=== PATIENT | female | born 1945 | race Caucasian/White ===

== ENCOUNTER 2025-02-08 13:48 | Emergency (ER) | payer MEDICARE, BC ==
[2025-02-08] MEDS ORDERED: Sodium Chloride 0.9% 10 ML Syringe FLUSH PRN (14:18)
[2025-02-08 14:40] LABS: BASOPHILS PERCENT AUTO 0.8 % (0.2-1.5); EOSINOPHILS ABSOLUTE AUTO 0.1 x10-3/uL (0.0-0.8); EOSINOPHILS PERCENT AUTO 2.5 % (0.6-8.1); HEMATOCRIT 42.7 % (34.2-48.2); HEMOGLOBIN 14.8 g/dL (11.4-15.5); LYMPHOCYTES ABSOLUTE AUTO 0.5 x10-3/uL (1.0-4.4); LYMPHOCYTES PERCENT AUTO 11.8 % (18.4-52.1); MEAN CORPUSCULAR HEMOGLOBIN 31.5 pg (23.9-33.9); MEAN CORPUSCULAR HGB CONC 34.7 g/dL (31.9-34.8); MEAN CORPUSCULAR VOLUME 90.7 fL (76.7-100.5); MEAN PLATELET VOLUME 7.7 fL (7.1-12.4); MONOCYTES ABSOLUTE AUTO 0.6 x10-3/uL (0.3-1.0); MONOCYTES PERCENT AUTO 14.9 % (4.4-15.7); PLATELET COUNT,PLT 186 x10(3)uL (151-488); RED BLOOD CELL COUNT 4.71 x10(6)uL (3.60-5.20); RED CELL DISTRIBUTION WIDTH 16.8 % (12.3-16.5); WHITE BLOOD CELL COUNT,WBC 4.3 x10-3/uL (3.0-10.3)
[2025-02-08 14:55] LABS: INR 3.87 (1.00-1.24)
[2025-02-08 14:57] LABS: A/G RATIO 1.2; ALANINE AMINOTRANSFERASE,ALT 20 U/L (12-36); ALBUMIN 3.9 g/dL (3.2-4.6); ALKALINE PHOSPHATASE 86 IU/L (56-112); ASPARTATE AMNIOTRANSFERASE,AST 29 IU/L (5-25); BILIRUBIN TOTAL 3.1 mg/dL (0.1-1.3); BLOOD UREA NITROGEN,BUN 18 mg/dL (7-18); CALCIUM 8.7 mg/dL (8.6-10.2); CARBON DIOXIDE,CO2 36 mmol/L (21-32); CREATININE 1.2 mg/dL (0.55-1.02); EST CRCL DRUG DOSING (CG) 27.74 mL/min; ESTIMATED GFR 45 mL/min (>60); GLUCOSE RANDOM 128 mg/dL (80-116); PROTEIN TOTAL,TP 7.3 g/dL (6.0-8.0)
[2025-02-08 15:07] LABS: C-REACTIVE PROTEIN < 0.50 mg/dL (<0.50); PRO B-TYPE NATRIUR PEPT,BNPPRO 8789 pg/mL (<=450)
[2025-02-08 15:11] LABS: CHLORIDE,CL 94 mmol/L (100-110); POTASSIUM,K 2.9 mmol/L (3.5-5.3); SODIUM,NA 137 mmol/L (135-145)
[2025-02-08] MEDS: Iopamidol 755 Mg/ML 100 ML Bottle IV SCH (15:36)
[2025-02-08 16:18] LABS: BILIRUBIN,URINE SMALL (NEGATIVE); GLUCOSE,URINE NORMAL (NORMAL); KETONES,URINE NEGATIVE (NEGATIVE); LEUKOCYTE ESTERASE,URINE NEGATIVE (NEGATIVE); NITRITE,URINE POSITIVE (NEGATIVE); OCCULT BLOOD,URINE LARGE (NEGATIVE); PH,URINE 6.5 (5.0-6.5); PROTEIN,URINE 30 mg/dL (NEGATIVE); UROBILINOGEN,URINE 1 mg/dL (NEGATIVE)
[2025-02-08 16:28] LABS: APPEARANCE,URINE SLIGHTLY CLOUDY (CLEAR); COLOR,URINE YELLOW (YELLOW)
[2025-02-08 16:29] LABS: BACTERIA,URINE MANY (NS); RBC,URINE 75-100 (0-5); SQUAMOUS EPITHELIAL CELLS,UR RARE (NS,R,O)
[2025-02-08] MEDS: Potassium Chloride 20 MEQ in Premix Bag 1 BAG IV ONE (16:53)
[2025-02-08] MEDS: Furosemide 40 MG/4 ML VIAL IVPUSH ONE (17:21)
== END 2025-02-08 18:20 | disposition other institution (70) ==
LOC: FB.ED 13:48
DX: I11.0 Hypertensive heart disease with heart failure (principal); I50.9 Heart failure, unspecified; N39.0 Urinary tract infection, site not specified; E87.6 Hypokalemia; Z90.49 Acquired absence of other specified parts of digestive tract; Z79.899 Other long term (current) drug therapy
CPT/HCPCS: 36415; 71260; 74177; 80053; 81001; 82272; 83605; 83880; 84484; 85025; 85379; 85610; 86140; 87086; 87088; 87186; 93005; 96365; 96375; 99285; A4353; J1938; J3480; Q9967